=== PATIENT | female | born 1965 | race Caucasian/White ===

== ENCOUNTER 2023-11-06 14:38 | Outpatient (CLI) | payer OTHER, SELFPAY | END 2023-11-06 14:39 | disposition home or self-care (01) | LOC: NFLDREF 11-08 11:28 | PROVIDERS: PCP Physician Assistant Medical; Referring Provider Physician Assistant Medical; Visit Provider Registered Nurse | DX: R30.0 Dysuria (principal); N39.0 Urinary tract infection, site not specified; N30.01 Acute cystitis with hematuria | CPT/HCPCS: 87086; 87186 ==

== ENCOUNTER 2023-12-18 07:30 | Outpatient (RCR) | payer OTHER, SELFPAY | END 2024-01-17 11:26 | disposition home or self-care (01) | PROVIDERS: PCP Physician Assistant Medical; Visit Provider Physician Assistant Medical | DX: M54.2 Cervicalgia (principal); M79.602 Pain in left arm; Z51.89 Encounter for other specified aftercare | CPT/HCPCS: 97110; 97140; 97161 ==

== ENCOUNTER 2024-06-03 13:00 | Outpatient (RCR) | payer OTHER, SELFPAY | END 2024-08-29 08:48 | disposition home or self-care (01) | PROVIDERS: PCP Physician Assistant Medical; Visit Provider Student in an Organized Health Care Education/Training Program | DX: S06.0X0D Concussion without loss of consciousness, subsequent encounter (principal); M62.838 Other muscle spasm; G54.0 Brachial plexus disorders; M54.2 Cervicalgia; M54.6 Pain in thoracic spine; M25.60 Stiffness of unspecified joint, not elsewhere classified; M62.81 Muscle weakness (generalized); Z51.89 Encounter for other specified aftercare | CPT/HCPCS: 97110; 97140; 97161 ==

== ENCOUNTER 2024-09-27 19:18 | Outpatient (CLI) | payer OTHER, SELFPAY | END 2024-09-27 19:19 | disposition home or self-care (01) | LOC: NFLDREF 10-02 05:44 | PROVIDERS: PCP Physician Assistant Medical; Referring Provider Physician Assistant Medical; Visit Provider Nurse Practitioner Family | DX: N30.00 Acute cystitis without hematuria (principal); B96.20 Unspecified Escherichia coli [E. coli] as the cause of diseases classified elsewhere | CPT/HCPCS: 87086; 87186 ==

== ENCOUNTER 2024-09-29 09:44 | Outpatient (CLI) | payer OTHER, SELFPAY | END 2024-09-29 09:45 | disposition home or self-care (01) | LOC: NFLDUCREF 09:45 | PROVIDERS: PCP Physician Assistant Medical; Visit Provider Physician Assistant | DX: R10.9 Unspecified abdominal pain (principal) | CPT/HCPCS: 87086 ==

== ENCOUNTER 2025-03-13 07:30 | Outpatient (RCR) | payer OTHER, SELFPAY | END 2025-04-23 12:19 | disposition home or self-care (01) | PROVIDERS: PCP Physician Assistant Medical; Visit Provider Family Medicine | DX: G44.86 Cervicogenic headache (principal); Z51.89 Encounter for other specified aftercare | CPT/HCPCS: 97110; 97140; 97161 ==